=== PATIENT | male | born 1935 | race African-American/Black ===

== ENCOUNTER 2018-02-16 16:54 | Observation (INO) | payer MEDICARE ==
[~2018-02-16] VITALS: Ht 170.2 cm; Wt 64.2 kg
[2018-02-16 17:23] LABS: BASO # 0.1 (0.0-0.2); BASO % 0.8 % (0.0-2.0); EOS # 0.4 (0.0-0.7); EOS % 4.6 % (0-4.0); GRAN # 6.1 (1.4-6.5); GRAN % 68.2 % (42.2-75.2); HEMOGLOBIN 10.5 g/dl (13.5-18.0); LYMPH # 1.2 (1.2-3.4); LYMPH % 13.2 % (20.0-51.0); MEAN CELL VOLUME 97 fl (80.0-100.0); MEAN CORPUSCULAR HEMOGLOBIN 30 pg (27.0-31.0); MEAN CORPUSCULAR HGB CONC 31 g/dl (33.0-37.0); MEAN PLATELET VOLUME 9.8 fl (7.4-10.4); MONO # 1.1 (0.1-0.6); MONO % 12.6 % (1.7-9.3); PLATELET COUNT 453 K/mm3 (130-400); RED BLOOD COUNT 3.45 M/mm3 (4.20-5.60)
[2018-02-16 17:25] LABS: HEMATOCRIT 33.4 % (42.0-52.0)
[2018-02-16 17:28] LABS: ALANINE AMINOTRANSFERASE 20 U/L (21-72); ALBUMIN 3.7 gm/dL (3.5-5.0); ALKALINE PHOSPHATASE 72 U/L (50-136); ANION GAP 6 mmol/L (7-16); AST,SGOT 37 U/L (15-37); BILIRUBIN,TOTAL 0.3 mg/dL (0.0-1.0); BLOOD UREA NITROGEN 12 mg/dL (9-20); CALCIUM 9.1 mg/dL (8.4-10.2); CARBON DIOXIDE 27 mmol/L (22-30); CHLORIDE 104 mmol/L (98-107); GLUCOSE 90 mg/dL (74-106); POTASSIUM 4.6 mmol/L (3.4-5.0); SODIUM 138 mmol/L (137-145); TOTAL PROTEIN 7.1 gm/dL (6.4-8.2)
[2018-02-16 17:30] LABS: PROTHROMBIN TIME 11.2 SECONDS (9.7-12.8)
[2018-02-16 17:40] LABS: TROPONIN-I < 0.012 ng/mL (0.000-0.034)
[2018-02-16 18:39] LABS: COLLECTION METHOD CLEAN CATCH
[2018-02-16 18:49] LABS: MUCOUS Present /lpf; PH 5 (5-8); SQUAMOUS EPITHELIAL None Seen /hpf; URINE APPEARANCE Clear; URINE BACTERIA None Seen /hpf; URINE BILIRUBIN Negative (NEGATIVE); URINE BLOOD Negative (NEGATIVE); URINE COLOR Yellow; URINE GLUCOSE Negative (NEGATIVE); URINE KETONE Negative (NEGATIVE); URINE LEUKOCYTE ESTERASE Negative (NEGATIVE); URINE NITRATE Negative (NEGATIVE); URINE PROTEIN(semi-quant) Negative (NEGATIVE); URINE RBC 0-2 /hpf; URINE UROBILINOGEN Negative (NEGATIVE)
[2018-02-16] MEDS ORDERED: ZOCOR 10MG10 MG PO (20:06)
[2018-02-16] MEDS ORDERED: ASPIRIN 81M81 MG/TA2 PO (20:06)
[2018-02-16] MEDS ORDERED: MULTI VITAMINS1 TAB PO (20:07)
[2018-02-16] MEDS ORDERED: NATURAL IRON65 MG PO (20:08)
[2018-02-16 20:31] VITALS: BP 135/64; PULSE 88; TEMP 97.6
--- NOTE | 2018-02-16 21:31 | NUR ---
Pt resting in bed comfortably and pt's family at the bedside. Pt alert and oriented. Pt denied pain. Call light in reach.
--- NOTE | 2018-02-16 22:14 | NUR ---
Visit attempted and pt sleeping soundly in bed. Call light in reach. Pt's son at the bedside.
[2018-02-16 22:50] VITALS: BP 135/64; PULSE 88; TEMP 97.6
--- NOTE | 2018-02-17 02:46 | NUR ---
Visit attempted and pt sleeping soundly in bed. Call light in reach.
[2018-02-17 05:03] VITALS: BP 115/52; PULSE 73; TEMP 98.4
--- NOTE | 2018-02-17 06:15 | NUR ---
Visit attempted and pt sleeping soundly in bed. Call light in reach.
--- NOTE | 2018-02-17 06:47 | NUR ---
Pt resting in bed with eyes closed and unlabored resp with son at bedside and call light in reach.
[2018-02-17 07:58] LABS: BASO % 0.6 % (0.0-2.0); EOS # 0.4 (0.0-0.7); EOS % 5.7 % (0-4.0); GRAN # 4.5 (1.4-6.5); GRAN % 66.8 % (42.2-75.2); LYMPH % 14.5 % (20.0-51.0); MEAN CELL VOLUME 95 fl (80.0-100.0); MEAN CORPUSCULAR HGB CONC 33 g/dl (33.0-37.0); MEAN PLATELET VOLUME 10.2 fl (7.4-10.4); MONO # 0.8 (0.1-0.6); PLATELET COUNT 384 K/mm3 (130-400); RED BLOOD COUNT 2.97 M/mm3 (4.20-5.60); REDCELL DISTRIBUTION WIDTH-CV 11.9 % (11.5-14.5)
[2018-02-17 08:03] LABS: HEMATOCRIT 28.3 % (42.0-52.0); HEMOGLOBIN 9.2 g/dl (13.5-18.0); MEAN CORPUSCULAR HEMOGLOBIN 31 pg (27.0-31.0)
--- NOTE | 2018-02-17 08:04 | NUR ---
Pt alert and oriented. Pt has son at bedside. Pt assisted to bathroom with SBA. Pt gait steady. Pt denies pain. Pt neuro WNL. Pt has IV RAC patent no redness or infiltration. Pt ordered breakfast. Pt has call light in reach.
[2018-02-17 08:07] LABS: CALCIUM 8.5 mg/dL (8.4-10.2); CHOLESTEROL RISK RATIO 5.7; CREATININE, serum 1.57 mg/dL (0.66-1.25)
[2018-02-17 08:09] VITALS: BP 122/66; PULSE 72; TEMP 98.7
--- NOTE | 2018-02-17 10:09 | NUR ---
Visited,listened to, and prayed with the patient.
[2018-02-17 11:38] VITALS: BP 114/56; PULSE 71; TEMP 98.5
--- NOTE | 2018-02-17 15:20 | NUR ---
Plan to return home with his Son and DTR in-law. Met with patient and DTR i n room. PT reports that he resides in with his son as a caregiver and DPOA. PT reports that his Son Stanley Posadas [phone] will transport him home or his DTR-inlaw. Pt reports the use of [facility] for RX and uses a heart monitor for his PCMK at home, denies any other DME. PCP is reported as Dr. Queen. No additional Needs Identified.
[2018-02-17 16:16] VITALS: BP 112/56; PULSE 70; TEMP 98.1
--- NOTE | 2018-02-17 16:53 | NUR ---
Pt family wants pt to be able to go home today. Pt's son expressed they were told this am that pt would be able to leave today and pt is still here pending results of echo/carotid. Dr. Duncan updated and will speak with pt. Pt has family at bedside and call light in reach.
[2018-02-17] MEDS ORDERED: ASPIRIN 32325 MG/TAB PO (16:58)
--- NOTE | 2018-02-17 18:35 | NUR ---
Pt alert and oriented. Pt and family given dc instructions after orders received to DC. Pt had ECHO and carotid completed today but awaiting results. Pt wants to go home tonight. Pt IV dc'd in RAC. NO redness or infiltration noted. Pt edu on Stroke and ASA given. Pt escorted via wheelchair to car with family by aide.
== END 2018-02-17 17:45 | disposition home or self-care (01) ==
LOC: COL.ER 16:54 → MEDICAL 18:38
PROVIDERS: Emergency Medicine; Nurse Practitioner; ADMIT Internal Medicine
DX: R47.01 Aphasia (principal); I12.9 Hypertensive chronic kidney disease with stage 1 through stage 4 chronic kidney disease, or unspecified chronic kidney disease; N18.3 Chronic kidney disease, stage 3 (moderate); Z95.0 Presence of cardiac pacemaker; Z79.82 Long term (current) use of aspirin; Z90.49 Acquired absence of other specified parts of digestive tract; Z79.899 Other long term (current) drug therapy
CPT/HCPCS: G0378; J7030

== ENCOUNTER 2018-09-24 06:49 | Day surgery (SDC) | payer MEDICARE ==
[2018-09-24] VITALS (454 sets, daily range): BP systolic 125–172; BP diastolic 71–99; PULSE 60–78; TEMP 97.6–98.2; O2SAT 82–100
[~2018-09-24] VITALS: Ht 170.3 cm; Wt 65.7 kg
[~2018-09-24 06:49] MED LIST: ASPIRIN 32325 MG/TAB PO; ASPIRIN 81M81 MG/TA2 PO; MULTI VITAMINS1 TAB PO; NATURAL IRON65 MG PO; ZOCOR 10MG10 MG PO
[2018-09-24 08:28] LABS: HEMOGLOBIN 10.2 g/dl (13.5-18.0); INR 0.9 (0.8-3.0); MEAN CELL VOLUME 94 fl (80.0-100.0); MEAN CORPUSCULAR HEMOGLOBIN 29 pg (27.0-31.0); MEAN CORPUSCULAR HGB CONC 31 g/dl (33.0-37.0); MEAN PLATELET VOLUME 10.3 fl (7.4-10.4); PLATELET COUNT 301 K/mm3 (130-400); PROTHROMBIN TIME 10.4 SECONDS (9.7-12.8); REDCELL DISTRIBUTION WIDTH-CV 14.5 % (11.5-14.5)
[2018-09-24 08:38] LABS: CALCIUM 8.5 mg/dL (8.4-10.2); CREATININE, serum 1.8 (0.66-1.25); POTASSIUM 4.4 mmol/L (3.4-5.0)
--- NOTE | 2018-09-24 09:28 | NUR ---
SEE MERGE DOCUMENTATION FOR MEDICATION ADMINISTRATION TIMES AND INTRA/POST PROCEDURE SEDATION ASSESSMENTS. MD NOTIFIED OF SLIGHT PT CONFUSION DURING INITIAL ASSESSMENT, PT SON STATES THIS IS NORMAL BASELINE FOR PT. ABLE TO EASILY REORIENT AT THIS TIME.
--- NOTE | 2018-09-24 10:30 | NUR ---
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 HE IS DROWSY, BUT AROUSES TO NAME. VS WNL. RIGHT FEMORAL SITE CLEAN DRY AND HAS NO S/S HEMATOMA OR BLEEDING. CARE ASSUMED.
--- NOTE | 2018-09-24 10:30 | NUR ---
Pt transferred to ICU from Human Resource Assistant at this time. Pt drowsy but awakes to name and follows commands. VS monitors connected at this time; VS's WNL. Bedside handoff to TIMUR Jones. Right Femoral access site assessed, dressing noted dry and intact. No bleeding, bruising, or other s/sx of hematoma noted at this time; site soft to palpation. Distal extremity pulses +1 to palpation. Education provided to pt and son regarding bedrest/flat time and s/sx to report to nurse.
--- NOTE | 2018-09-24 15:00 | NUR ---
PATIENT GETS UP TO COMMODE AT THIS TIME. HE HAS LOOSE STOOL, THEN MOVES TO RECLINER. WILL CONTINUE TO MONITOR.
--- NOTE | 2018-09-24 19:15 | NUR ---
BEDSIDE REPORT GIVEN TO TIMUR MENDOZA. PATIENT GROIN SITE EVALUATED TOGETHER AND ASSISTED BACK INTO BED. CARE TURNED OVER AT THIS TIME.
--- NOTE | 2018-09-24 22:38 | NUR ---
Pt currently resting in bed, VSS at this time, denies pain A/Ox2 self and year, lung clear-spo2 100% on RA. Pt impulsive with UO and BM urgency. BMs noted to be watery x 1 on this shift so far. Right groing site soft, no reddness or hematomas noted, denies pain at site. Pt to possibly go home tomorrow. Will continue to monitor pt status and update providers as as needed.
[2018-09-25] VITALS (124 sets, daily range): BP systolic 140–154; BP diastolic 75–85; PULSE 59–80; TEMP 98.5–98.9; O2SAT 86–100
[2018-09-25 02:46] LABS: BASO % 0.3 % (0.0-2.0); EOS # 0.5 (0.0-0.7); GRAN # 8.8 (1.4-6.5); GRAN % 75.8 % (42.2-75.2); HEMOGLOBIN 10.5 g/dl (13.5-18.0); LYMPH # 1.1 (1.2-3.4); LYMPH % 9.1 % (20.0-51.0); MEAN CELL VOLUME 91 fl (80.0-100.0); MEAN CORPUSCULAR HEMOGLOBIN 29 pg (27.0-31.0); MEAN CORPUSCULAR HGB CONC 32 g/dl (33.0-37.0); MEAN PLATELET VOLUME 10.4 fl (7.4-10.4); MONO # 1.2 (0.1-0.6); MONO % 9.9 % (1.7-9.3); PLATELET COUNT 320 K/mm3 (130-400); RED BLOOD COUNT 3.65 M/mm3 (4.20-5.60); REDCELL DISTRIBUTION WIDTH-CV 14.2 % (11.5-14.5)
[2018-09-25 02:47] LABS: HEMATOCRIT 33.2 % (42.0-52.0)
[2018-09-25 02:57] LABS: CALCIUM 8.8 mg/dL (8.4-10.2); CREATININE, serum 1.74 (0.66-1.25); POTASSIUM 4.5 mmol/L (3.4-5.0)
--- NOTE | 2018-09-25 05:15 | NUR ---
Reveived report from TIMUR Montenegro. Patient care transfered.
--- NOTE | 2018-09-25 06:42 | NUR ---
Bed alarm sounding; entered room to check on patient. Observed patient sitting up on side of the bed. Requesting to go to the bathrooom. Assisted to the bathroom. Patient has been confused throughout the night. Stating that he needs to go somewhere or to do something with various objects in his environment. Patient is pleasant and mostly easily directed at these times. This nurse left room to give report; [facility] RN at bedside to help patient back to bed.
--- NOTE | 2018-09-25 08:00 | NUR ---
Shift assessment complete at this time. Plan of care reviewed at bedside with patient. Additional time taken to address any other needs or concerns. Pt with mild confusion and disoriented to time upon assessment. Denies pain or any other discomforts. Vitals stable at this time. R femoral cath site clean, dry, et intact with no drainage or hematoma present. Bed in low position, call light within reach, will continue to monitor.
--- NOTE | 2018-09-25 10:23 | NUR ---
Initial visit; Patient thanked [employer]er for looking in on him. He states his son is an associate at a synagogue and cares for his spiritual needs. [employer] offered God's blessings.
--- NOTE | 2018-09-25 12:00 | NUR ---
Pt resting comfortably in bed. Denies pain or any other discomfort. Vitals stable at this time. Will continue to monitor.
[2018-09-25] MEDS ORDERED: BRILINTA90 MG PO (13:04)
[2018-09-25] MEDS ORDERED: LIPITOR20 MG PO (13:05)
[2018-09-25] MEDS ORDERED: LOPRESSOR 225 MG/TAB PO (13:06)
[2018-09-25] MEDS ORDERED: NITROSTAT0.4 MG/TAB SL (13:06)
[2018-09-25] MEDS ORDERED: ASPIRIN E.C. 8181 MG PO (13:07)
== END 2018-09-25 14:15 | disposition home or self-care (01) ==
LOC: COL.CAR 06:49 → ICU 06:49 → COL.CAR 07:00 → ICU 10:03 → COL.CAR 09-25 14:15
PROVIDERS: Internal Medicine Cardiovascular Disease; Nurse Practitioner
DX: I25.10 Atherosclerotic heart disease of native coronary artery without angina pectoris (principal); R94.39 Abnormal result of other cardiovascular function study; E78.5 Hyperlipidemia, unspecified; I10 Essential (primary) hypertension; M35.3 Polymyalgia rheumatica; I08.3 Combined rheumatic disorders of mitral, aortic and tricuspid valves; Z86.73 Personal history of transient ischemic attack (TIA), and cerebral infarction without residual deficits; Z79.82 Long term (current) use of aspirin; Z79.52 Long term (current) use of systemic steroids; Z88.8 Allergy status to other drugs, medicaments and biological substances
CPT/HCPCS: OP; C1760; C1769; C1874; C1887; C1894; C9600; J0583; J1644; J2250; J3010; Q9967

== ENCOUNTER 2020-12-27 19:58 | Emergency (ER) | payer MEDICARE ==
[~2020-12-27 19:58] MED LIST changes: +ASPIRIN E.C. 8181 MG PO; +BRILINTA90 MG PO; +LIPITOR20 MG PO; +LOPRESSOR 225 MG/TAB PO; +NITROSTAT0.4 MG/TAB SL
== END 2020-12-27 20:11 | disposition left against medical advice (07) ==
LOC: COL.ER 19:58
DX: R52 Pain, unspecified (principal)

== ENCOUNTER 2021-03-27 19:31 | Inpatient (IN) | payer MEDICARE ==
[~2021-03-27] VITALS: Ht 172.7 cm; Wt 65.7 kg
[2021-03-27 20:47] LABS: BASO # 0.1 K/mm3 (0.0-0.2); BASO % 0.8 % (0.0-2.0); EOS # 0.9 K/mm3 (0.0-0.7); EOS % 10.2 % (0.0-4.0); GRAN # 5.9 K/mm3 (1.4-6.5); GRAN % 67.8 % (42.2-75.2); HEMATOCRIT 38.2 % (42.0-52.0); HEMOGLOBIN 12.2 g/dl (13.5-18.0); LYMPH # 0.8 K/mm3 (1.2-3.4); LYMPH % 8.6 % (20.0-51.0); MEAN CELL VOLUME 99 fl (80.0-100.0); MEAN CORPUSCULAR HEMOGLOBIN 32 pg (27-31); MEAN CORPUSCULAR HGB CONC 32 g/dl (33.0-37.0); MEAN PLATELET VOLUME 9.9 fl (7.4-10.4); PLATELET COUNT 287 K/mm3 (130-400); RED BLOOD COUNT 3.85 M/mm3 (4.20-5.60); REDCELL DISTRIBUTION WIDTH-CV 13.2 % (11.5-14.5)
[2021-03-27 21:03] LABS: ALBUMIN 3.1 gm/dL (3.4-4.8); BILIRUBIN,TOTAL 0.4 mg/dL (0.2-1.2); C-REACTIVE PROTEIN 11.53 mg/dL (0.00-0.50); CALCIUM 9.2 mg/dL (8.4-10.2); CREATININE, serum 2.15 mg/dL (0.72-1.25); POTASSIUM 4.7 mmol/L (3.5-4.5); TOTAL PROTEIN 7.1 gm/dL (6.2-8.1)
[2021-03-27 21:18] LABS: TROPONIN-I 0.052 ng/mL (0.00-0.033)
[2021-03-27] MEDS ORDERED: PREDNISONE10 MG PO (22:14)
[2021-03-27] MEDS ORDERED: PLAVIX 75MG TAB75 MG PO (22:15)
[2021-03-27] MEDS ORDERED: ASPIRIN 81M81 MG/TA2 PO (22:16)
[2021-03-27] MEDS ORDERED: AMARYL4 MG PO (22:18)
[2021-03-27] MEDS ORDERED: VITAMIN C500 MG PO (22:18)
[2021-03-27] MEDS ORDERED: NAMENDA 10MG TA10 MG PO (22:20)
[2021-03-28] VITALS (8 sets, daily range): BP systolic 121–161; BP diastolic 54–90; PULSE 58–113; TEMP 97.4–102.8
[2021-03-28 00:10] LABS: INR 1.2 (0.8-3.0)
[2021-03-28 00:21] LABS: C-REACTIVE PROTEIN 11.14 mg/dL (0.00-0.50); MAGNESIUM 1.7 mg/dL (1.6-2.6)
[2021-03-28 00:31] LABS: TROPONIN-I 0.07 ng/mL (0.00-0.033)
[2021-03-28 03:42] LABS: BASO % 0.6 % (0.0-2.0); EOS # 0.8 K/mm3 (0.0-0.7); EOS % 12.7 % (0.0-4.0); GRAN # 4.1 K/mm3 (1.4-6.5); GRAN % 63.7 % (42.2-75.2); HEMOGLOBIN 10.6 g/dl (13.5-18.0); LYMPH # 0.6 K/mm3 (1.2-3.4); MEAN CELL VOLUME 98 fl (80.0-100.0); MEAN CORPUSCULAR HEMOGLOBIN 32 pg (27-31); MEAN CORPUSCULAR HGB CONC 32 g/dl (33.0-37.0); MEAN PLATELET VOLUME 10.1 fl (7.4-10.4); MONO # 0.9 K/mm3 (0.1-0.6); MONO % 13.5 % (1.7-9.3); PLATELET COUNT 254 K/mm3 (130-400); RED BLOOD COUNT 3.33 M/mm3 (4.20-5.60); REDCELL DISTRIBUTION WIDTH-CV 13.3 % (11.5-14.5)
[2021-03-28 03:43] LABS: HEMATOCRIT 32.7 % (42.0-52.0)
[2021-03-28 03:46] LABS: CALCIUM 8.6 mg/dL (8.4-10.2); CREATININE, serum 1.99 mg/dL (0.72-1.25)
--- NOTE | 2021-03-28 03:46 | NUR ---
PT ARRIVES TO MEDICAL FLOOR AT MIDNIGHT TO ROOM 305 BY ED DIRECTOR WRITING. PT ABLE TO MOVE TO BED SBA. THIS NURSE NOTED PTS IV IN RIGHT AC INFILTRATED UPON ARRIVAL. THIS NURSE IMMEDIATELY STOPPED IV PUMP AND PLACED A WARM TOWEL ON PT ARM. THIS NURSE INITATED A NEW IV IN LFA (22) AND COMMENCED D5NS AT 100CC/HR, PT A/OX1,CAN BECOME VERBALLY VOLATILE OR SEVERELY RESISANT TO CARE. THIS NURSE HAD TO ACQUIRE THE ASSISTANCE OF TWO NURSES TO COMPLETE ASSESMENT AND MEDICATION ADMINISTRATION AND IV INITATION.VSS, PT AFEBRILE. HOSPITALIST COMPLETED MED REC WITH PTS SON CA, MED REC CONFIRMED. THIS NURSE IS UNABLE TO ORIENT PT TO ROOM, HOSPITAL POLICY. ALL ORDERS RECIEVED. ACCU CHECK Q1H NOTED. BED LOW. BED ALARM ON. PT VISISBLE TO NURSES STATION. ALL NEEDS MET AT THIS TIME.
[2021-03-28 04:07] LABS: TROPONIN-I 6 HR POST INITIAL 0.066 ng/mL (0.00-0.033)
[2021-03-28 04:55] LABS: ARTERIAL BLD GAS O2 SATURATION 96.2 % (92-100); ARTERIAL BLD GAS TCO2 CT 18.8; ARTERIAL BLOOD GAS BASE EXCESS -5.1 (-2-2); ARTERIAL BLOOD GAS HCO3 17.9 meq/L (22-26); ARTERIAL BLOOD GAS PCO2 27.6 mmHg (35-45); ARTERIAL BLOOD GAS PO2 84.1 mmHg (80-100); ARTERIAL BLOOD GAS pH 7.43 (7.35-7.45)
--- NOTE | 2021-03-28 05:04 | NUR ---
PT BS DROPPED TO 48 , 1/2 AMP PROVIDED, BS 70 ON RECHECK.
--- NOTE | 2021-03-28 06:26 | NUR ---
BS 73 AT 0600. PT IN BED SLEEPING AT THIS TIME. D5NS CONTINUES TO INFUSE AT 100ML/HR. PT UA NOT COLLECTED. WILL RELAY. BED ALARM ON. BED LOW. PT VISISBLE TO NURSES STATION.
--- NOTE | 2021-03-28 06:48 | NUR ---
CONTACTED AT 0645 FOR CARDIO CONSULT. VERBALIZES CONFIRMATION.
--- NOTE | 2021-03-28 07:30 | NUR ---
Remote video monitor in place to pt's continued line of site d/t aggitation and confusion. Bed alarm on
--- NOTE | 2021-03-28 08:00 | NUR ---
Pt disoriented, aggiated when stimulated during assessment and when asking orientation questions. Pt refusing oral temperature and refusing PO meds, conversation confused and unable to answer questions appropriately. Pt's son called in, update provided, no concerns.
--- NOTE | 2021-03-28 12:15 | NUR ---
Pt's son Stanley called in. Stanley is upset with situation and wanting to picking supervisor pt to leave AMA. Stanley does not believe that the pt has COVID and is upset regarding the visitor policy for COVID + patients. Stanley educated that pt: continues to require IV fluid to maintain blood glucose >90mg/dL, pt unable to follow simple direction like taking a drink of water from cup or straw. Stanley educated on oral antidiabetic medications when oral food and water intake is stopped. MD Mely called and spoke with Stanley - he is agreeable to continue hospital treatment for his father. Open Hearth Helper TIMUR Chase notified of situation, and requested she obtain the Tablet so Stanley and Family can have tele meeting/Zoom call
--- NOTE | 2021-03-28 14:47 | NUR ---
MD Mely aware of pt fever. Tylenol PRN has been administered. Heavy blankets removed, thermostat adjusted down, cool rag applied to forehead. Pt neuro status remians unchanged.
--- NOTE | 2021-03-28 15:00 | NUR ---
Pt continues to make attempts to get out of bed, occasionally tripping the bed alarm. Frequent reorientation provided.
--- NOTE | 2021-03-28 15:16 | NUR ---
1436 D10W changed to 75mL/hr per MD Mely since last FSBS:127mg/dL
--- NOTE | 2021-03-28 15:53 | NUR ---
FSBS:127mg/dL - D10W stopped, D5NS restarted at 100mL/hr per MD Mely
--- NOTE | 2021-03-28 16:23 | NUR ---
Zoom call being performed with pt and family
[2021-03-28 16:47] LABS: CALCIUM 8.8 mg/dL (8.4-10.2); CREATININE, serum 1.82 mg/dL (0.72-1.25); POTASSIUM 4.2 mmol/L (3.5-4.5)
[2021-03-29 04:00] VITALS: BP 97/36; PULSE 116; TEMP 99.3
[2021-03-29 09:02] VITALS: BP 149/67; PULSE 72; TEMP 100
[2021-03-29 11:50] VITALS: BP 139/79; PULSE 63; TEMP 99.9
--- NOTE | 2021-03-29 12:15 | NUR ---
Assessment completed, patient is disoriented/ unable to follow commands or answer any questions appropriately, he does not appear to be in any acute pain or distress, blood sugar are controlled and WNL/ remains on D51/2 NS infusion, no resp.difficulty noted and lungs CTA, heart RRR/dsital pulses aer palpable, no edema noted, PT/OT/ST all ordered and evaluating, will discuss plan of care with son on the phone later today
--- NOTE | 2021-03-29 13:36 | NUR ---
Program Aide Group Work contacted patient's son, Stanley (ph#[phone]) to discuss discharge planning as patient has been confused. Stanley advised that patient lives with him and his , Nati (ph#[phone]) in [place] and sees Dr. Queen for primary care. Patient obtains medications either by mail ([facility]) or at [facility] in . Patient does not normally use any DME but Stanley reported the have a brand new walker that patient can use if needed. Stanley reported that patient is normally pretty independent with ADLS, however needs some assistance with bathing. Stanley advised that patient had DPOA-HC at one time, but he is not sure where it is located. Patient is not and has six children: Kalyani Posadas, Jorge Luis Posadas, Stanley Posadas, Des Posadas II, Antonina Posadas, and Tosin Montero. Stanley advised that they plan will be for patient to return home at time of discharge. CHELY discussed Home Health services with Stanley who is agreeable to this and would like referral sent to [facility]. CHELY contacted Nelida at [facility] and faxed referral. Discharge Plan: Home with services, pending further PT/OT recommendations
--- NOTE | 2021-03-29 16:00 | NUR ---
Discussed plan of care with , explained that patient continues to run fevers and remains non-verbal and unable to follow commands/answer questiaons , he is not eating or drinking, fsbs are improved and stable while on d5 infusion, other vital signs stable, son would like an update from physician
[2021-03-29 16:36] VITALS: BP 138/91; PULSE 91; TEMP 102.1
[2021-03-29 17:37] LABS: BASO % 0.6 % (0.0-2.0); EOS # 0.8 K/mm3 (0.0-0.7); GRAN # 3.8 K/mm3 (1.4-6.5); GRAN % 58.4 % (42.2-75.2); HEMOGLOBIN 11.3 g/dl (13.5-18.0); MEAN CELL VOLUME 97 fl (80.0-100.0); MEAN CORPUSCULAR HEMOGLOBIN 32 pg (27-31); MEAN CORPUSCULAR HGB CONC 33 g/dl (33.0-37.0); MEAN PLATELET VOLUME 10.6 fl (7.4-10.4); MONO # 0.8 K/mm3 (0.1-0.6); MONO % 12.2 % (1.7-9.3); PLATELET COUNT 254 K/mm3 (130-400); RED BLOOD COUNT 3.59 M/mm3 (4.20-5.60); REDCELL DISTRIBUTION WIDTH-CV 13.2 % (11.5-14.5)
[2021-03-29 17:48] LABS: HEMATOCRIT 34.7 % (42.0-52.0)
[2021-03-29 17:55] LABS: C-REACTIVE PROTEIN 25.37 mg/dL (0.00-0.50); CALCIUM 8.7 mg/dL (8.4-10.2); CREATININE, serum 1.72 mg/dL (0.72-1.25); POTASSIUM 4.3 mmol/L (3.5-4.5)
[2021-03-29 20:51] VITALS: BP 131/66; PULSE 97; TEMP 99.1
[2021-03-29 23:35] VITALS: BP 125/62; PULSE 74; TEMP 97.3
[2021-03-30 05:21] VITALS: BP 148/75; PULSE 110; TEMP 98.4
[2021-03-30 06:56] LABS: CALCIUM 8.8 mg/dL (8.4-10.2); CREATININE, serum 1.87 mg/dL (0.72-1.25); POTASSIUM 5.1 mmol/L (3.5-4.5)
[2021-03-30 08:13] LABS: BASO # 0.1 K/mm3 (0.0-0.2); BASO % 0.6 % (0.0-2.0); EOS % 12.6 % (0.0-4.0); GRAN # 5.4 K/mm3 (1.4-6.5); GRAN % 68.9 % (42.2-75.2); HEMOGLOBIN 11.8 g/dl (13.5-18.0); LYMPH # 0.8 K/mm3 (1.2-3.4); LYMPH % 9.9 % (20.0-51.0); MEAN CELL VOLUME 97 fl (80.0-100.0); MEAN CORPUSCULAR HEMOGLOBIN 31 pg (27-31); MEAN CORPUSCULAR HGB CONC 32 g/dl (33.0-37.0); MEAN PLATELET VOLUME 10.4 fl (7.4-10.4); MONO # 0.6 K/mm3 (0.1-0.6); MONO % 7.5 % (1.7-9.3); PLATELET COUNT 264 K/mm3 (130-400); RED BLOOD COUNT 3.79 M/mm3 (4.20-5.60); REDCELL DISTRIBUTION WIDTH-CV 13.2 % (11.5-14.5)
[2021-03-30 08:20] LABS: HEMATOCRIT 36.9 % (42.0-52.0)
[2021-03-30 08:22] VITALS: BP 140/89; PULSE 45; TEMP 101
--- NOTE | 2021-03-30 09:00 | NUR ---
Call made to son, Stanley. He states he has been caring for his father for the last 4 years and has every intention to continue that. Stanley states he is interested in home health and extra assistance as needed and plans to be with his father 05/09 for the next several days until they can get everything else settle and figured out. Stanley states he is in frequent communication with the patient's PCP, Dr. Queen, about nutrition, hydration, and other care matters and feels comfortable continuing that relationship. I did discuss with Stanley that this episode and infection may have advanced his father's dementia and he may not return to his previous level of functioning. Stanley voiced understanding but reiterated that he intends to take care of his father at home just as before. I then discussed resources available to them if they were to need them down the road. Notified SW and care team of discussion.
[2021-03-30] MEDS ORDERED: ZYPREXA ZYDIS15 MG PO ×2 (12:03)
[2021-03-30] MEDS ORDERED: OMNICEF 300MG300 MG PO (12:15)
[2021-03-30 12:39] VITALS: TEMP 100.3
--- NOTE | 2021-03-30 13:37 | NUR ---
Palliative consult placed for patient. Staff Certified Nurse Midwife collaborated with Sarah, Palliative Care RN who advised patient's son, Stanley plans to take patient home and care for him as he has been. Stanley would like to pursue Home Health services as discussed yesterday. CHELY collaborated with Dr. Bautista who again advised patient's son wants to take him home with services. Patient to discharge today. CHELY followed up with patient's son, Stanley and confirmed discharge plan. Stanley is here to chicken picker patient and is expecting a call from [facility] soon. CHELY contacted Nelida at [facility] and faxed discharge orders. Discharge Plan: Home with [facility]
--- NOTE | 2021-03-30 14:10 | NUR ---
PT DISCHARGED HOME WITH SON. PT WAS NOT VERY ALERT, DID NOT OPEN HIS EYES VERY WELL. DISCUSSED WITH THE PATIENT'S SON TO MONITOR THE PATIENT CLOSELY. ASSISTED PATIENT INTO TRUCK. NO OTHER CONCERNS.
[2021-03-30] MEDS ORDERED: LIPITOR 40MG TA40 MG PO (14:27)
[2021-03-30] MEDS ORDERED: DESYREL 50MG50 MG PO (14:27)
== END 2021-03-30 14:21 | disposition home or self-care (01) | DRG 637 ==
LOC: COL.ER 19:31 → MEDICAL 21:50
PROVIDERS: Internal Medicine; Nurse Practitioner; Nurse Practitioner Family; ADMIT Internal Medicine
DX: E11.649 Type 2 diabetes mellitus with hypoglycemia without coma (principal); U07.1 COVID-19; E87.2 Acidosis; I42.9 Cardiomyopathy, unspecified; G93.49 Other encephalopathy; N17.9 Acute kidney failure, unspecified; F03.90 Unspecified dementia, unspecified severity, without behavioral disturbance, psychotic disturbance, mood disturbance, and anxiety; E78.5 Hyperlipidemia, unspecified; M10.9 Gout, unspecified; I25.10 Atherosclerotic heart disease of native coronary artery without angina pectoris; E11.22 Type 2 diabetes mellitus with diabetic chronic kidney disease; I12.9 Hypertensive chronic kidney disease with stage 1 through stage 4 chronic kidney disease, or unspecified chronic kidney disease; N18.9 Chronic kidney disease, unspecified; K52.9 Noninfective gastroenteritis and colitis, unspecified; D64.9 Anemia, unspecified; E87.5 Hyperkalemia; I08.0 Rheumatic disorders of both mitral and aortic valves; F01.50 Vascular dementia, unspecified severity, without behavioral disturbance, psychotic disturbance, mood disturbance, and anxiety; Z95.0 Presence of cardiac pacemaker; Z95.5 Presence of coronary angioplasty implant and graft; Z79.82 Long term (current) use of aspirin
CPT/HCPCS: 99222-AI; 99232-AI; 99233-AI; J0696; J1644; J2060; J7030; J7042; J7512